=== PATIENT | male | born 1985 | race Caucasian/White ===

== ENCOUNTER 2017-08-22 22:01 | Emergency (ER) | payer OTHER ==
[~2017-08-22] VITALS: Ht 170.2 cm; Wt 65.8 kg
[2017-08-22] MEDS ORDERED: IBUP600 PO (23:57)
[2017-08-22] MEDS ORDERED: Amoxicillin500 M1 PO (23:57)
[2017-08-22] MEDS ORDERED: NEOPOLHCSU BOTHEARS (23:57)
== END 2017-08-23 00:15 | disposition home or self-care (01) ==
LOC: ER 22:01
DX: H66.91 Otitis media, unspecified, right ear (principal); H60.92 Unspecified otitis externa, left ear; S90.822A Blister (nonthermal), left foot, initial encounter; S90.821A Blister (nonthermal), right foot, initial encounter; Z59.0 Homelessness; Z79.899 Other long term (current) drug therapy; Z79.2 Long term (current) use of antibiotics; E03.9 Hypothyroidism, unspecified; F17.210 Nicotine dependence, cigarettes, uncomplicated; X58.XXXA Exposure to other specified factors, initial encounter
CPT/HCPCS: 99283